=== PATIENT | female | born 1965 | race Caucasian/White ===

== ENCOUNTER → 2017-03-29 | Outpatient (CLI) | payer OTHER ==
--- NOTE | 2017-03-29 20:50 | MR ---
EXAMINATION TYPE: MR cervical spine wo con DATE OF EXAM: 03/29/2017 COMPARISON: NONE HISTORY: Neck pain and headache TECHNIQUE: Multiplanar, multisequence images of the cervical spine were acquired. C2-C3: No evidence for degenerative disc disease. No disc bulge/herniation or protrusion. No Canal stenosis. Foramina are patent bilaterally. C3-C4: No evidence for degenerative disc disease. No disc bulge/herniation or protrusion. No Canal stenosis. Foramina are patent bilaterally. C4-C5: Posterior extension of endplate disc complex extends circumferentially to cause bilateral fora gabriel encroachment and there is anterior mass effect on the thecal sac, moderate central canal stenos is. C5-C6: Circumferential extension posteriorly of endplate disc complex extends laterally to cause fora gabriel encroachment greater on the right than on the left. There is moderate central canal stenosis. C6-C7: Left posterior paracentral extension of endplate disc complex causes anterior mass effect on t he thecal sac, only mild central stenosis. C7-T1: No evidence for degenerative disc disease. No disc bulge/herniation or protrusion. No Canal stenosis. Foramina are patent bilaterally. Cervical segments are intact. There is normal alignment. Cervical spinal cord is of normal signal. Craniovertebral junction relationships are within normal limits. Cervical vertebral bodies show min imal endplate discogenic marrow signal change, there is associated loss of disc height and signal maryjane ecially at C4-5, C5-6. Spinal curvature is suspected in the thoracic spine. IMPRESSION: Degenerative disc disease, multilevel foraminal encroachment as described. Suspect thoracic scoliosis .
== END | disposition home or self-care (01) ==
LOC: RADMRIMAIN 17:28
PROVIDERS: ATTEND Family Medicine
DX: M50.10 Cervical disc disorder with radiculopathy, unspecified cervical region (principal)
CPT/HCPCS: 72141

== ENCOUNTER → 2017-09-01 | Outpatient (CLI) | payer OTHER ==
--- NOTE | 2017-09-01 23:05 | MR ---
EXAMINATION TYPE: MR lumbar spine wo con DATE OF EXAM: 09/01/2017 COMPARISON: NONE HISTORY: Back pain for 20 years TECHNIQUE: Multiplanar, multisequence images of the lumbar spine were acquired. The lumbar vertebra have normal alignment. This spaces are fairly well-maintained. Lumbar nerve roots appear normal. Neural foramina appear widely patent. There is no significant displacement narrowing. Posterior elements appear intact. Sacroiliac joints appear intact. There is no lumbar paraspinal mas s. There is no compression fracture. There are very small posterior disc bulges at L4-5 and L5-S1. Th ere is developmentally adequate spinal canal. IMPRESSION: Minimal posterior disc bulging in the lower lumbar spine. No spinal stenosis. No fracture.
== END | disposition home or self-care (01) ==
LOC: RADMRIMAIN 16:34
PROVIDERS: ATTEND Psychiatry & Neurology Neurology
DX: M51.26 Other intervertebral disc displacement, lumbar region (principal)
CPT/HCPCS: 72148

== ENCOUNTER → 2019-05-31 | Outpatient (CLI) | payer SELFPAY ==
--- NOTE | 2019-06-01 08:55 | MM ---
Reason for exam: additional evaluation requested from abnormal screening. Last mammogram was performed 1 month ago. History: Patient is postmenopausal. Family history of breast cancer in mother at age 76. Physical Findings: Nurse did not find any significant physical abnormalities on exam. MG Work Up Mamm w CAD LT Spot compression CC and spot compression MLO view(s) were taken of the left breast. Prior study comparison: May 14, 2019, bilateral foundation screening mammo. The breast tissue is heterogeneously dense. This may lower the sensitivity of mammography. There is no discrete abnormality including area of concern. These results were verbally communicated with the patient and result sheet given to the patient on 05/31/19. ASSESSMENT: Probably benign, BI-RAD 3 RECOMMENDATION: Follow-up diagnostic mammogram of the left breast in 6 months.
== END | disposition home or self-care (01) ==
LOC: RADMAMWWP 14:53
PROVIDERS: ATTEND Family Medicine
DX: R92.8 Other abnormal and inconclusive findings on diagnostic imaging of breast (principal); Z80.3 Family history of malignant neoplasm of breast
CPT/HCPCS: 77065

== ENCOUNTER → 2020-03-17 | Outpatient (CLI) | payer OTHER ==
--- NOTE | 2020-03-18 05:55 | MR ---
EXAMINATION TYPE: MR lumbar spine wo con DATE OF EXAM: 03/17/2020 COMPARISON: MRI lumbar spine October 30, 2017. HISTORY: LBP, injury October 2019 TECHNIQUE: Multiplanar, multisequence imaging of the lumbar spine is performed without IV contrast. FINDINGS: Sagittal images of the lumbar spine show vertebral body heights and alignment to remain sat isfactory. There is multilevel disc desiccation redemonstrated. Mild disc space narrowing L3-L4 and L4-L5 levels redemonstrated. The conus medullaris remains normal in position and signal ending mid L1 level. Mild multilevel anterior spurring with some heterogeneous Modic type II endplate changes invo lving the anterior endplates redemonstrated. Stable 14 mm Tarlov cyst posterior inferior S2 level sag ittal image 6. Axial images at T12-L1 level show new mild broad disc bulge minimally effacing anterior thecal sac. Axial images at L1-L2 and L2-L3 levels remain within normal limits. Axial images at L3-L4 level show mild to moderate broad disc bulge mildly effacing the anterior theca l sac and causing mild left-sided anterior inferior neural foraminal narrowing due to left foraminal contusion component. Slight progression from 2018 MRI noted. Axial images at the L4-L5 level shows mild/moderate broad-based posterior disc protrusion mildly faci ng anterior thecal sac with mild facet degenerative changes bilaterally, there is mild bilateral ante rior inferior neural foraminal narrowing. No significant change from prior. Axial images at the L5-S1 level shows mild facet degenerative changes bilaterally. There is broad-bas ed disc protrusion minimally effacing the anterior thecal sac. Mild bilateral anterior inferior neura l foraminal narrowing redemonstrated. No significant change from prior. IMPRESSION: Mild multilevel degenerative changes in the lumbar spine with some interval progression f rom 2018 MRI noted.
== END | disposition home or self-care (01) ==
LOC: RADMRIMAIN 19:22
PROVIDERS: ATTEND Nurse Practitioner Family
DX: M47.816 Spondylosis without myelopathy or radiculopathy, lumbar region (principal)
CPT/HCPCS: 72148

== ENCOUNTER 2023-05-16 09:31 | Day surgery (SDC) | payer OTHER ==
[2023-05-13 10:29] VITALS: BMI 30.7
[~2023-05-16 09:31] MED LIST: DEXAMETHASONE SOD PHOSPHATE 4 MG/ML 1 ML VIAL IV ONE; HYDROmorphone 0.5 MG/0.5 ML SYRINGE IVP PRN; LACTATED RINGERS 1,000 ML IV SCH; LIDOCAINE 1% (10MG/ML) FOR IV START INTRADERMA PRN; ONDANSETRON 4 MG/2 ML VIAL IVP PRN; droPERidol 5 MG/2 ML VIAL IVP ONE
[2023-05-16] MEDS ORDERED: LIDOCAINE 1% INJ 10MG/ML (20 ML MDV) ONE (11:34)
[2023-05-16] MEDS ORDERED: PROPOFOL 10 MG/ML 20 ML VIAL IV ONE (11:34)
[2023-05-16] MEDS ORDERED: fentaNYL (PF) 50 MCG/ML 2 ML AMP ONE (11:34)
[2023-05-16] MEDS ORDERED: MIDAZOLAM 2 MG/2 ML VIAL ONE (11:34)
[2023-05-16] MEDS ORDERED: PHENYLEPHRINE-0.9% NACL SYG 1,000 MCG/10 ML SYRINGE ONE (11:34)
[2023-05-16] MEDS ORDERED: BUPIVACAINE (PF) 0.5% 30 ML VIAL SQ ONE (11:50)
[2023-05-16] MEDS ORDERED: LIDOCAINE 2%-EPI 1:100,000 20 ML VIAL SQ ONE (11:50)
[2023-05-16] MEDS ORDERED: LACTATED RINGERS 1,000 ML IV ONE (13:34)
[2023-05-16 13:38] VITALS: TEMP 96.8
[2023-05-16 14:02] VITALS: RESP 20
[2023-05-16 14:24] VITALS: BP 159/79; PULSE 64
--- NOTE | 2023-05-17 13:39 | P.OP ---
Date of Procedure: 05/16/23 Preoperative Diagnosis: Left index finger laceration with digital nerve laceration Postoperative Diagnosis: Same Procedure(s) Performed: Left index digital nerve repair Implants: Axogen nerve connector 4mm Anesthesia: DOUG, local Surgeon: Shyanne Field Estimated Blood Loss (ml): 2 Pathology: none sent Condition: stable Disposition: PACU Indications for Procedure: Patient cut herself at work sustaining a digital nerve laceration on the radial side of her index finger. We discussed treatment options and she would like to proceed with nerve repair. We will likely need a nerve graft or connector. Operative Findings: Radial digital nerve to the index finger was transected. Once the ends were trimmed to healthy fascicles there was a 5mm gap. This was bridged with a nerve connector. Description of Procedure: The patient, operative extremity, and procedure were identified in the preop [facility] area. After informed consent was obtained, she was brought back to the OR and a local block was performed. The arm was then prepped and draped in normal sterile fashion with a tourniquet. A formal time out was performed and the tourniquet was inflated. The laceration was at the base of the index finger at the MCP level. It was extended proximally and distally. Dissection was carried down to the subcutaneous tissue and the neurovascualr buncdle was identified. The digital nerve was found to be completely lacerated. The ends were dissected out and freed up. The ends of the nerve were trimmed until healthy fascicles were noted. There was a 5mm gap. A 4mm nerve connector was split lengthwise adn the ends of the nerve were inserted. An interrupted stitch was performed with 8.0 nylon at both ends and to secure the wrap in the center. The digit was taken through a full range of motion without any tension on the repair. Tendon sheath was found to be intact. The tourniquet was let down, hemostasis was achieved, and the wound closed with 4.0 nylon suture. Woudn was dressed with adaptic, gauze, and vinny wrap.
== END 2023-05-16 14:38 | disposition home or self-care (01) ==
LOC: OR 09:31
PROVIDERS: ATTEND Orthopaedic Surgery Hand Surgery
DX: S61.211A Laceration without foreign body of left index finger without damage to nail, initial encounter (principal); I10 Essential (primary) hypertension; K21.9 Gastro-esophageal reflux disease without esophagitis; F32.A Depression, unspecified; F17.200 Nicotine dependence, unspecified, uncomplicated; Z79.811 Long term (current) use of aromatase inhibitors; Z79.899 Other long term (current) drug therapy
CPT/HCPCS: 64831; C1713; J2250; J1100; J0690; J2405; J2001; J3010; J2704; J2371; J0665